=== PATIENT | male | born 1995 | race Two or more races ===

== ENCOUNTER 2016-03-13 02:23 | Emergency (ER) | payer SELFPAY ==
[~2016-03-13] VITALS: Ht 167.6 cm; Wt 63.5 kg
[2016-03-13 02:26] VITALS: BP 131/88
== END 2016-03-13 02:54 | disposition home or self-care (01) ==
LOC: ER 02:24
DX: Z00.8 Encounter for other general examination (principal); F15.10 Other stimulant abuse, uncomplicated
CPT/HCPCS: 99283; A4606; Z7610